=== PATIENT | male | born 1940 | race Caucasian/White ===

== ENCOUNTER 2021-02-04 14:36 | Outpatient (CLI) | payer MEDICARE ==
[2021-02-04 15:32] LABS: INR-International Normal Ratio 1.1; PTT 30.9 sec (22.0-33.0); Prothrombin Time 11.7 sec (9.5-12.1)
[2021-02-04 17:01] LABS: Anion Gap 17 mmol/L (10-20); BUN (Urea Nitrogen) 25 mg/dL (8.4-25.7); Calc. Creatinine Clearance 0 mL/min (70-130); Calcium 9.4 mg/dL (7.8-10.44); Carbon Dioxide 23 mmol/L (23-31); Chloride 102 mmol/L (98-107); Glucose 78 mg/dL (83-110); Potassium 4.9 mmol/L (3.5-5.1); Sodium 137 mmol/L (136-145)
[2021-02-05 01:27] LABS: SARS-CoV-2 PCR by NAA Not Detected (NotDetected)
== END 2021-02-04 14:37 | disposition home or self-care (01) ==
LOC: LABBT 14:36
PROVIDERS: ATTEND Internal Medicine Cardiovascular Disease
DX: Z01.818 Encounter for other preprocedural examination (principal); I48.91 Unspecified atrial fibrillation; Z20.822 Contact with and (suspected) exposure to COVID-19
CPT/HCPCS: 80048; 85610; 85730; 87635; U0003; U0005

== ENCOUNTER 2021-02-06 08:08 | Day surgery (SDC) | payer MEDICARE ==
[2021-02-05 13:08] VITALS: BMI 29.4
[2021-02-06] MEDS ORDERED: PROPOFOL 20 ML ONE (09:21)
[2021-02-06] MEDS ORDERED: PHENYLEPHRINE-NS 100 MCG/ML 10 ML SYRINGE ONE (09:21)
== END 2021-02-06 12:05 | disposition home or self-care (01) ==
LOC: CCL 08:08
PROVIDERS: ATTEND Internal Medicine Cardiovascular Disease
PROC: B24BZZ4 Ultrasonography of Heart with Aorta, Transesophageal (ICD-10-PCS; principal; 2021-02-06)
PROC: 5A2204Z Restoration of Cardiac Rhythm, Single (ICD-10-PCS; 2021-02-06)
DX: I48.0 Paroxysmal atrial fibrillation (principal); I25.5 Ischemic cardiomyopathy; I08.1 Rheumatic disorders of both mitral and tricuspid valves; I70.0 Atherosclerosis of aorta; E11.9 Type 2 diabetes mellitus without complications; I10 Essential (primary) hypertension; G47.33 Obstructive sleep apnea (adult) (pediatric); Z95.1 Presence of aortocoronary bypass graft; Z79.01 Long term (current) use of anticoagulants; Z79.4 Long term (current) use of insulin; Z79.899 Other long term (current) drug therapy; Z88.5 Allergy status to narcotic agent
CPT/HCPCS: 36416; 92960; 93005; 93010; 93312; J2704

== ENCOUNTER 2021-02-11 11:14 | Observation (INO) | payer MEDICARE ==
[2021-02-11 11:55] LABS: #Eosinphils 0.2 thou/uL (0.0-0.7); #Lymphocytes 1.4 thou/uL (1.20-3.40); #Monocytes 0.8 thou/uL (0.11-0.59); #Neutrophils 5.7 thou/uL (1.40-6.50); %Basophils 0.3 % (0.0-1.0); %Eosinophils 2.3 % (0.0-10.0); %Monocytes 9.4 % (0.0-10.0); Hemoglobin 11.2 g/dL (14.0-18.0); Mean Corpuscular HGB CONC 33.1 g/dL (32.0-36.0); Mean Corpuscular Hemoglobin 29.9 pg (27.0-31.0); Mean Corpuscular Volume 90.3 fL (78.0-98.0); Mean Platelet Volume 8.1 fL (7.4-10.4); Platelet Count 222 thou/uL (130-400); RBC Distribution Width 12.3 % (11.5-14.5); Red Blood Cell (RBC) Count 3.74 mill/uL (4.70-6.10); White Blood Cell (WBC) Count 8.1 thou/uL (4.8-10.8)
[2021-02-11 12:25] LABS: ALT (SGPT) 11 U/L (8-55); AST (SGOT) 9 U/L (5-34); Albumin 3.6 g/dL (3.4-4.8); Alkaline Phosphatase 88 U/L (40-110); Anion Gap 15 mmol/L (10-20); BUN (Urea Nitrogen) 28 mg/dL (8.4-25.7); Bilirubin, Total 0.4 mg/dL (0.2-1.2); Calc. Creatinine Clearance 0 mL/min (70-130); Calcium 9.5 mg/dL (7.8-10.44); Carbon Dioxide 21 mmol/L (23-31); Chloride 104 mmol/L (98-107); Globulin 3.1 g/dL (2.4-3.5); Glucose 193 mg/dL (83-110); Potassium 4.4 mmol/L (3.5-5.1); Protein, Total 6.7 g/dL (5.8-8.1); Sodium 136 mmol/L (136-145)
[2021-02-11] MEDS ORDERED: Furosemide 20 MG/2 ML VIAL SLOW IVP SCH (15:45)
[2021-02-11 17:00] LABS: Troponin I Less than 0.010 ng/mL (< 0.028)
[2021-02-11] MEDS ORDERED: Dextrose 50% Abboject 50 ML SYRINGE SLOW IVP PRN (17:09)
[2021-02-11] MEDS ORDERED: Acetaminophen 325 MG TAB PO PRN (17:09)
[2021-02-11] MEDS ORDERED: Dextrose 5% in Water 1,000 ML IV PRN (17:09)
[2021-02-11] MEDS ORDERED: Ondansetron ODT 4 MG TAB PO PRN (17:09)
[2021-02-11] MEDS ORDERED: HumaLOG 300 UNITS/3 ML VIAL SC PRN ×2 (17:09)
[2021-02-11 17:58] VITALS: BMI 31.4
[2021-02-11 19:54] LABS: Troponin I 0.011 ng/mL (< 0.028)
[2021-02-11] MEDS: Famotidine 20 MG TAB PO SCH (20:34)
[2021-02-11] MEDS: Amiodarone 200 MG TAB PO SCH (20:34)
[2021-02-11] MEDS: Sacubitril 49 MG/Valsartan 51 MG TABLET PO SCH (20:34)
[2021-02-11] MEDS: ALPRAZolam 0.25 MG TAB PO SCH (20:34)
[2021-02-11] MEDS ORDERED: Atorvastatin Calcium 40 MG TAB PO SCH (21:00)
[2021-02-11 21:11] LABS: SARS-CoV-2 PCR by NAA Not Detected (NotDetected)
[2021-02-12 05:26] LABS: Anion Gap 12 mmol/L (10-20); BUN (Urea Nitrogen) 21 mg/dL (8.4-25.7); Calc. Creatinine Clearance 84 mL/min (70-130); Calcium 9.5 mg/dL (7.8-10.44); Carbon Dioxide 26 mmol/L (23-31); Chloride 102 mmol/L (98-107); Glucose 190 mg/dL (83-110); Potassium 4.8 mmol/L (3.5-5.1); Sodium 135 mmol/L (136-145)
[2021-02-12] MEDS ORDERED: metFORMIN 500 MG TAB PO SCH (08:00)
[2021-02-12] MEDS ORDERED: Carvedilol 6.25 MG TAB PO SCH (08:00)
[2021-02-12] MEDS: Sacubitril 49 MG/Valsartan 51 MG TABLET PO SCH (08:23)
[2021-02-12] MEDS: Amiodarone 200 MG TAB PO SCH (08:24)
[2021-02-12] MEDS: Famotidine 20 MG TAB PO SCH (08:24)
[2021-02-12] MEDS: ALPRAZolam 0.25 MG TAB PO SCH (08:25)
[2021-02-12] MEDS ORDERED: Venlafaxine HCl 25 MG TAB PO SCH (09:00)
[2021-02-12] MEDS ORDERED: Non-Formulary Item 1 EACH (Carvedilol [Coreg] 12.5 MG Tab) PO SCH (09:00)
[2021-02-12] MEDS ORDERED: Atorvastatin Calcium 10 MG TAB PO SCH (09:00)
[2021-02-12] MEDS ORDERED: Non-Formulary Item 1 EACH (Metformin Hcl [Metformin Hcl] 1,000 MG Tablet) PO SCH (09:00)
[2021-02-12] MEDS ORDERED: Amiodarone 200 MG TAB PO SCH (09:00)
[2021-02-12] MEDS ORDERED: Apixaban 5 MG TAB PO SCH (09:00)
[2021-02-12] MEDS ORDERED: Ketorolac Tromethamine 30 MG/ML VIAL IVP SCH (09:15)
[2021-02-12] MEDS ORDERED: ALPRAZolam 0.25 MG TAB PO SCH ×2 (09:30→15:00)
[2021-02-12] MEDS ORDERED: Furosemide 20 MG TAB PO SCH (09:30)
[2021-02-12 12:14] VITALS: BP 99/57; TEMP 98
[2021-02-12] MEDS ORDERED: ALPRAZolam 0.5 MG TAB PO SCH (15:00)
[2021-02-12] MEDS ORDERED: Lantus 1000 UNITS/10 ML VIAL SC SCH (21:00)
[2021-02-12] MEDS ORDERED: Non-Formulary Item 1 EACH (Insulin Detemir 100 Units/Ml [Levemir] 100 UNITS/ML Vial) SQ SCH (21:00)
[2021-02-13] MEDS ORDERED: Furosemide 20 MG TAB PO SCH (09:00)
== END 2021-02-12 12:55 | disposition home or self-care (01) ==
LOC: ERS 11:14 → 2SW 15:00
PROVIDERS: ADMIT Student in an Organized Health Care Education/Training Program; ATTEND Student in an Organized Health Care Education/Training Program
DX: I11.0 Hypertensive heart disease with heart failure (principal); I50.9 Heart failure, unspecified; E78.5 Hyperlipidemia, unspecified; E11.9 Type 2 diabetes mellitus without complications; I48.91 Unspecified atrial fibrillation; I48.92 Unspecified atrial flutter; I25.10 Atherosclerotic heart disease of native coronary artery without angina pectoris; H40.9 Unspecified glaucoma; I44.0 Atrioventricular block, first degree; I45.4 Nonspecific intraventricular block; I08.1 Rheumatic disorders of both mitral and tricuspid valves; Z66 Do not resuscitate; Z79.01 Long term (current) use of anticoagulants; Z79.4 Long term (current) use of insulin; Z79.899 Other long term (current) drug therapy; Z88.5 Allergy status to narcotic agent; Z95.1 Presence of aortocoronary bypass graft; Z20.822 Contact with and (suspected) exposure to COVID-19
CPT/HCPCS: 71045; 71275; 80048; 80053; 82962 ×2; 83880; 84484 ×2; 85025; 93005; 93306; 94760; 99285; U0003; U0005; 36415; 36416; 87635; 96374; 96375; G0378; J1815; J1885; J1940

== ENCOUNTER 2021-04-10 11:19 | Outpatient (CLI) | payer MEDICARE ==
[2021-04-10 13:00] LABS: #Eosinphils 0.2 10x3/uL (0.0-0.5); #Monocytes 0.8 10x3/uL (0.0-1.1); #Neutrophils 3.7 10x3/uL (1.5-8.4); %Basophils 0.6 % (0.0-2.0); %Eosinophils 2.9 % (0.0-6.0); %Lymphocytes 24.1 % (18.0-47.0); %Monocytes 12.2 % (0.0-10.0); %Neutrophils 59.7 % (40.0-75.0); Hemoglobin 11.6 g/dL (13.5-17.5); Mean Corpuscular HGB CONC 31.4 g/dL (32.0-36.0); Mean Corpuscular Hemoglobin 28.7 pg (27.0-33.0); Mean Corpuscular Volume 91.3 fl (81.2-95.1); Mean Platelet Volume 10.7 fl (7.4-10.4); Platelet Count 144 10x3/uL (150-450); RBC Distribution Width 14.5 % (11.5-14.5); Red Blood Cell (RBC) Count 4.04 10x6/uL (4.32-5.72); White Blood Cell (WBC) Count 6.2 10x3/uL (3.5-10.5)
[2021-04-10 13:09] LABS: Bilirubin Neg (Negative); Blood, Urine Negative (Negative); Clarity Clear (Clear); Glucose, Urine (Dipstick) Normal (Negative); Ketone, Urine Negative (Negative); Leukocyte Negative (Negative); Nitrite Negative (Negative); Protein, Urine (Dipstick) 15 mg/dl (Neg-Trace); Specific Gravity, Urine 1.015 (1.002-1.036); Urobilinogen Normal mg/dL (Less than 2); pH, Urine 6.5 (5.0-9.0)
[2021-04-10 13:13] LABS: PTT 29.5 sec (22.0-33.0); Prothrombin Time 11.2 sec (9.5-12.1)
[2021-04-10 13:26] LABS: Creatinine, Urine 79.82 mg/dL (63-166); Microalbumin/Creat Ratio 75.2 mg/g (Less than 30)
[2021-04-10 13:37] LABS: ALT (SGPT) 38 U/L (8-55); AST (SGOT) 21 U/L (5-34); Albumin 3.7 g/dL (3.4-4.8); Alkaline Phosphatase 100 U/L (40-110); Anion Gap 13 mmol/L (10-20); BUN (Urea Nitrogen) 31 mg/dL (8.4-25.7); Bilirubin, Total 0.3 mg/dL (0.2-1.2); Calc. Creatinine Clearance 0 mL/min (70-130); Carbon Dioxide 27 mmol/L (23-31); Cardiac Risk 3.5 (Less than 4.5); Chloride 108 mmol/L (98-107); Cholesterol 130 mg/dl (< 200 Desired); Globulin 2.9 g/dL (2.4-3.5); Glucose 116 mg/dL (83-110); HDL Cholesterol 37 mg/dL (>60 Neg Risk); LDL Cholesterol, Calculated 81 mg/dL; Potassium 6.5 mmol/L (3.5-5.1); Protein, Total 6.6 g/dL (5.8-8.1); Sodium 141 mmol/L (136-145); Triglycerides 61 mg/dL (Less than 150)
[2021-04-10 16:34] LABS: Hemoglobin A1c 7.2 % (4.0-6.0)
== END 2021-04-10 11:20 | disposition home or self-care (01) ==
LOC: LABBT 11:19
PROVIDERS: ATTEND Internal Medicine Cardiovascular Disease
DX: Z01.812 Encounter for preprocedural laboratory examination (principal); I48.91 Unspecified atrial fibrillation; I44.7 Left bundle-branch block, unspecified
CPT/HCPCS: 80053; 80061; 81003; 82043; 83036; 84443; 85610; 85730

== ENCOUNTER 2021-04-15 08:41 | Day surgery (SDC) | payer MEDICARE ==
[2021-04-14 09:07] VITALS: BMI 31.3
[2021-04-15] MEDS ORDERED: Iopamidol 370 76% 50 ML VIAL FS ONE (09:03)
[2021-04-15] MEDS ORDERED: CEFAZOLIN 1 GM VIAL ONE ×2 (09:51→14:45)
[2021-04-15] MEDS ORDERED: Gentamicin 80 MG/2 ML VIAL ONE ×2 (09:51→14:45)
[2021-04-15] MEDS ORDERED: Heparin 10,000 UNITS/ 10 ML VIAL ONE (09:51)
[2021-04-15] MEDS ORDERED: Lidocaine 1% (PF) 30 ML VIAL ONE (09:51)
[2021-04-15] MEDS ORDERED: Famotidine/PF 20 mg/2ml Vial ONE (11:19)
[2021-04-15] MEDS ORDERED: Fentanyl 100 MCG/2 ML VIAL ONE ×2 (11:19→16:18)
[2021-04-15] MEDS ORDERED: Midazolam HCl 2 mg/2 ml Vial ONE (11:19)
[2021-04-15] MEDS ORDERED: PHENYLEPHRINE-NS 100 MCG/ML 10 ML SYRINGE ONE (11:56)
[2021-04-15] MEDS ORDERED: PROPOFOL 200 MG/20 ML VIAL ONE (11:56)
[2021-04-15] MEDS ORDERED: Metoclopramide HCl 10 MG/2 ML VIAL ONE (11:56)
[2021-04-15] MEDS ORDERED: Ondansetron PF 4 MG/2 ML Vial ONE (11:56)
[2021-04-15] MEDS ORDERED: Lidocaine 1% PF 5 ML VIAL ONE (11:56)
[2021-04-15] MEDS ORDERED: Propofol 1,000 MG/100 ML VIAL IV ONE (11:59)
[2021-04-15] MEDS ORDERED: DOPamine 400 MG/D5W 250 ML 250 ML ONE (14:27)
[2021-04-15] MEDS ORDERED: HYDROcodone/Acetaminophen 5/325 mg Tablet ONE (18:01)
== END 2021-04-15 20:25 | disposition home or self-care (01) ==
LOC: CCL 08:41
PROVIDERS: ATTEND Internal Medicine Cardiovascular Disease
PROC: 0JH606Z Insertion of Pacemaker, Dual Chamber into Chest Subcutaneous Tissue and Fascia, Open Approach (ICD-10-PCS; principal; 2021-04-15)
PROC: 02HL3JZ Insertion of Pacemaker Lead into Left Ventricle, Percutaneous Approach (ICD-10-PCS; 2021-04-15)
PROC: 02H63JZ Insertion of Pacemaker Lead into Right Atrium, Percutaneous Approach (ICD-10-PCS; 2021-04-15)
PROC: 02HK3JZ Insertion of Pacemaker Lead into Right Ventricle, Percutaneous Approach (ICD-10-PCS; 2021-04-15)
PROC: 02583ZZ Destruction of Conduction Mechanism, Percutaneous Approach (ICD-10-PCS; 2021-04-15)
PROC: 02K83ZZ Map Conduction Mechanism, Percutaneous Approach (ICD-10-PCS; 2021-04-15)
DX: I49.5 Sick sinus syndrome (principal); R00.1 Bradycardia, unspecified; I48.11 Longstanding persistent atrial fibrillation; J44.9 Chronic obstructive pulmonary disease, unspecified; I50.42 Chronic combined systolic (congestive) and diastolic (congestive) heart failure; I27.20 Pulmonary hypertension, unspecified; I25.5 Ischemic cardiomyopathy; I44.7 Left bundle-branch block, unspecified; I44.2 Atrioventricular block, complete; I25.10 Atherosclerotic heart disease of native coronary artery without angina pectoris; E78.00 Pure hypercholesterolemia, unspecified; E11.69 Type 2 diabetes mellitus with other specified complication; H54.3 Unqualified visual loss, both eyes; G47.30 Sleep apnea, unspecified; Z79.01 Long term (current) use of anticoagulants; Z79.4 Long term (current) use of insulin; Z79.899 Other long term (current) drug therapy; Z88.5 Allergy status to narcotic agent; Z95.1 Presence of aortocoronary bypass graft
CPT/HCPCS: 33208; 33225; 71045; 76942; 93005; 93613; 93623; 93650; C1732; C1769; J0690; J1265; J1580; J1644; J2001; J2250; J2405; J2704; J2765; J3010; Q9967; S0028

== ENCOUNTER 2023-01-21 05:54 | Day surgery (SDC) | payer MEDICARE ==
[2023-01-18 13:34] VITALS: BMI 30.6
[2023-01-21] MEDS ORDERED: Lidocaine 1% MPF 2 ML VIAL ONE (06:31)
[2023-01-21] MEDS ORDERED: Dextrose 50% Abboject 50 ML SYRINGE ONE (07:18)
[2023-01-21] MEDS ORDERED: Ondansetron PF 4 MG/2 ML Vial ONE (08:11)
[2023-01-21] MEDS ORDERED: fentaNYL 50 mcg/mL 1 mL Vial ONE ×2 (08:11)
== END 2023-01-21 10:47 | disposition home or self-care (01) ==
LOC: SDC 05:54
PROVIDERS: ATTEND Internal Medicine
PROC: 0DB98ZX Excision of Duodenum, Via Natural or Artificial Opening Endoscopic, Diagnostic (ICD-10-PCS; principal; 2023-01-21)
PROC: 0DB78ZX Excision of Stomach, Pylorus, Via Natural or Artificial Opening Endoscopic, Diagnostic (ICD-10-PCS; 2023-01-21)
PROC: 0DB58ZX Excision of Esophagus, Via Natural or Artificial Opening Endoscopic, Diagnostic (ICD-10-PCS; 2023-01-21)
PROC: 0DBG8ZX Excision of Left Large Intestine, Via Natural or Artificial Opening Endoscopic, Diagnostic (ICD-10-PCS; 2023-01-21)
PROC: 0DBF8ZX Excision of Right Large Intestine, Via Natural or Artificial Opening Endoscopic, Diagnostic (ICD-10-PCS; 2023-01-21)
PROC: 0DBK8ZX Excision of Ascending Colon, Via Natural or Artificial Opening Endoscopic, Diagnostic (ICD-10-PCS; 2023-01-21)
PROC: 0DBN8ZX Excision of Sigmoid Colon, Via Natural or Artificial Opening Endoscopic, Diagnostic (ICD-10-PCS; 2023-01-21)
PROC: 0DBM8ZX Excision of Descending Colon, Via Natural or Artificial Opening Endoscopic, Diagnostic (ICD-10-PCS; 2023-01-21)
DX: D12.0 Benign neoplasm of cecum (principal); D12.2 Benign neoplasm of ascending colon; D12.4 Benign neoplasm of descending colon; D12.5 Benign neoplasm of sigmoid colon; K63.5 Polyp of colon; K21.00 Gastro-esophageal reflux disease with esophagitis, without bleeding; K52.9 Noninfective gastroenteritis and colitis, unspecified; K29.70 Gastritis, unspecified, without bleeding; K44.9 Diaphragmatic hernia without obstruction or gangrene; K64.8 Other hemorrhoids; I25.10 Atherosclerotic heart disease of native coronary artery without angina pectoris; E11.9 Type 2 diabetes mellitus without complications; E78.5 Hyperlipidemia, unspecified; I10 Essential (primary) hypertension; E07.9 Disorder of thyroid, unspecified; Z79.01 Long term (current) use of anticoagulants; Z79.4 Long term (current) use of insulin; Z79.84 Long term (current) use of oral hypoglycemic drugs; Z79.890 Hormone replacement therapy; Z79.899 Other long term (current) drug therapy; Z88.5 Allergy status to narcotic agent; Z95.0 Presence of cardiac pacemaker; Z95.1 Presence of aortocoronary bypass graft
CPT/HCPCS: 43239; 45380; 45385; 82962; J3010; 36416; 88305; J2405; J7999

== ENCOUNTER 2023-09-29 17:45 | Inpatient (IN) | payer MEDICARE ==
[2023-09-29] MEDS ORDERED: Aspirin Chewable 81 MG TAB ONE (18:12)
[2023-09-29] MEDS ORDERED: hydrALAZINE 20 MG/ML VIAL SLOW IVP PRN (19:45)
[2023-09-29] MEDS ORDERED: HumaLOG 300 UNITS/3 ML VIAL SC PRN ×2 (20:41)
[2023-09-29] MEDS ORDERED: Dextrose 5% in Water 1,000 ML IV PRN (20:41)
[2023-09-29] MEDS ORDERED: Dextrose 50% Abboject 50 ML SYRINGE SLOW IVP PRN (20:41)
[2023-09-29] MEDS ORDERED: Glucagon 1 MG/ML KIT IM PRN (20:41)
[2023-09-29 21:31] LABS: Bacteria/HPF None Seen HPF (None Seen); Bilirubin Negative (Negative); Blood, Urine 3+ (Negative); CAUTI Indications for Culture Acute Hematuria; Clarity Clear (Clear); Glucose, Urine (Dipstick) Normal (Negative); Ketone, Urine Negative (Negative); Leukocyte Negative Leu/uL (Negative); Nitrite Negative (Negative); Protein, Urine (Dipstick) 10 mg/dL (Neg-Trace); RBC/HPF Greater than 50 HPF (0-3); Specific Gravity, Urine 1.034 (1.002-1.036); Squamous Epithelial 0-3 HPF (0-3); Urobilinogen Normal mg/dL (Less than 2); WBC/HPF 0-3 HPF (0-3); pH, Urine 5.5 (5.0-9.0)
[2023-09-29 21:32] LABS: Urine Culture Reflex No No
[2023-09-29 22:34] VITALS: BMI 29.7
[2023-09-29] MEDS: Acetaminophen 325 MG TAB PO PRN (23:20)
[2023-09-30] LABS: Bacteria/HPF None Seen HPF (None Seen); Bilirubin Negative (Negative); Blood, Urine 3+ (Negative); CAUTI Indications for Culture Acute Hematuria; Clarity Clear (Clear); Glucose, Urine (Dipstick) Normal (Negative); Ketone, Urine Negative (Negative); Leukocyte Negative Leu/uL (Negative); Nitrite Negative (Negative); Protein, Urine (Dipstick) Negative (Neg-Trace); RBC/HPF Greater than 50 HPF (0-3); Squamous Epithelial None Seen HPF (0-3); Urobilinogen Normal mg/dL (Less than 2); pH, Urine 5.5 (5.0-9.0)
[2023-09-30 00:02] LABS: Urine Culture Reflex Yes Yes
[2023-09-30 04:06] LABS: #Eosinphils 0.3 thou/uL (0.0-0.7); #Monocytes 0.8 thou/uL (0.11-0.59); #Neutrophils 3.6 thou/uL (1.40-6.50); %Basophils 0.6 % (0.0-1.0); %Eosinophils 4.3 % (0.0-10.0); %Lymphocytes 27.5 % (21.0-51.0); %Monocytes 11.6 % (0.0-10.0); %Neutrophils 55.4 % (42.0-75.0); Hematocrit 33.5 % (42.0-52.0); Hemoglobin 10.9 g/dL (14.0-18.0); Mean Corpuscular HGB CONC 32.5 g/dL (32.0-36.0); Mean Corpuscular Hemoglobin 29.2 pg (27.0-31.0); Mean Corpuscular Volume 89.8 fl (78.0-98.0); Mean Platelet Volume 10.3 fL (7.4-10.4); Platelet Count 188 10x3/uL (130-400); RBC Distribution Width 13.6 % (11.5-14.5); Red Blood Cell (RBC) Count 3.73 mill/uL (4.70-6.10); White Blood Cell (WBC) Count 6.5 10x3/uL (4.8-10.8)
[2023-09-30 04:35] LABS: Anion Gap 11 mmol/L (10-20); BUN (Urea Nitrogen) 18 mg/dL (8.4-25.7); Calc. Creatinine Clearance 79 mL/min (70-130); Calcium 8.9 mg/dL (7.8-10.44); Carbon Dioxide 25 mmol/L (23-31); Cardiac Risk 3.9 (Less than 4.5); Chloride 106 mmol/L (98-107); Cholesterol 120 mg/dl (< 200 Desired); Estimated GFR 76; Glucose 129 mg/dL (83-110); HDL Cholesterol 31 mg/dL (>60 Neg Risk); LDL Cholesterol, Calculated 70 mg/dL; Potassium 3.7 mmol/L (3.5-5.1); Sodium 138 mmol/L (136-145); Triglycerides 95 mg/dL (Less than 150)
[2023-09-30] MEDS: Levothyroxine Sodium 25 MCG TAB PO SCH (05:53)
[2023-09-30 06:35] LABS: #Basophils 0.1 thou/uL (0.0-0.2); #Eosinphils 0.3 thou/uL (0.0-0.7); #Monocytes 0.6 thou/uL (0.11-0.59); #Neutrophils 3.6 thou/uL (1.40-6.50); %Eosinophils 4.1 % (0.0-10.0); %Lymphocytes 26.6 % (21.0-51.0); %Monocytes 10.1 % (0.0-10.0); %Neutrophils 57.6 % (42.0-75.0); Hematocrit 36.3 % (42.0-52.0); Hemoglobin 11.9 g/dL (14.0-18.0); Mean Corpuscular HGB CONC 32.8 g/dL (32.0-36.0); Mean Corpuscular Hemoglobin 29.5 pg (27.0-31.0); Mean Corpuscular Volume 89.9 fl (78.0-98.0); Mean Platelet Volume 10.2 fL (7.4-10.4); Platelet Count 205 10x3/uL (130-400); RBC Distribution Width 13.6 % (11.5-14.5); Red Blood Cell (RBC) Count 4.04 mill/uL (4.70-6.10); White Blood Cell (WBC) Count 6.3 10x3/uL (4.8-10.8)
[2023-09-30 07:13] LABS: ALT (SGPT) 15 U/L (8-55); AST (SGOT) 14 U/L (5-34); Albumin 3.5 g/dL (3.4-4.8); Alkaline Phosphatase 88 U/L (40-110); Anion Gap 12 mmol/L (10-20); BUN (Urea Nitrogen) 17 mg/dL (8.4-25.7); Bilirubin, Total 0.4 mg/dL (0.2-1.2); Calc. Creatinine Clearance 84 mL/min (70-130); Calcium 8.7 mg/dL (7.8-10.44); Carbon Dioxide 25 mmol/L (23-31); Chloride 107 mmol/L (98-107); Estimated GFR 80; Globulin 3.1 g/dL (2.4-3.5); Glucose 115 mg/dL (83-110); Potassium 3.8 mmol/L (3.5-5.1); Protein, Total 6.6 g/dL (5.8-8.1); Sodium 140 mmol/L (136-145)
[2023-09-30] MEDS ORDERED: Lorazepam 0.5 MG TAB PO PRN (08:13)
[2023-09-30] MEDS ORDERED: Apixaban 5 MG TAB PO SCH ×2 (09:00→14:02)
[2023-09-30] MEDS: metFORMIN 500 MG TAB PO SCH ×2 (09:28→18:11)
[2023-09-30] MEDS: Dorzolamide HCl 2% Ophth Soln 10 ml Bottle EA EYE SCH ×2 (09:28→20:52)
[2023-09-30] MEDS: Insulin Glargine 30 UNITS/0.3 ML VIAL SC SCH (09:28)
[2023-09-30] MEDS: Aspirin 81 mg Enteric Coated Tablet PO SCH (09:29)
[2023-09-30] MEDS: Sertraline 100 MG TAB PO SCH (09:29)
[2023-09-30] MEDS ORDERED: Atorvastatin Calcium 40 MG TAB PO SCH (14:00)
[2023-09-30] MEDS: Apixaban 5 MG TAB PO SCH (20:52)
[2023-09-30] MEDS ORDERED: Atorvastatin Calcium 10 MG TAB PO SCH (21:00)
[2023-10-01] MEDS: Levothyroxine Sodium 25 MCG TAB PO SCH (05:54)
[2023-10-01 06:36] LABS: #Basophils 0.1 thou/uL (0.0-0.2); #Eosinphils 0.2 thou/uL (0.0-0.7); #Monocytes 0.7 thou/uL (0.11-0.59); #Neutrophils 4.6 thou/uL (1.40-6.50); %Basophils 0.7 % (0.0-1.0); %Eosinophils 3.1 % (0.0-10.0); %Lymphocytes 24.1 % (21.0-51.0); %Monocytes 9.7 % (0.0-10.0); %Neutrophils 62.1 % (42.0-75.0); Hematocrit 37.3 % (42.0-52.0); Hemoglobin 12.2 g/dL (14.0-18.0); Mean Corpuscular HGB CONC 32.7 g/dL (32.0-36.0); Mean Corpuscular Hemoglobin 29.3 pg (27.0-31.0); Mean Corpuscular Volume 89.7 fl (78.0-98.0); Mean Platelet Volume 10.2 fL (7.4-10.4); Platelet Count 165 10x3/uL (130-400); RBC Distribution Width 13.5 % (11.5-14.5); Red Blood Cell (RBC) Count 4.16 mill/uL (4.70-6.10); White Blood Cell (WBC) Count 7.4 10x3/uL (4.8-10.8)
[2023-10-01 07:05] LABS: ALT (SGPT) 14 U/L (8-55); AST (SGOT) 13 U/L (5-34); Albumin 3.4 g/dL (3.4-4.8); Alkaline Phosphatase 83 U/L (40-110); Anion Gap 13 mmol/L (10-20); BUN (Urea Nitrogen) 17 mg/dL (8.4-25.7); Bilirubin, Total 0.4 mg/dL (0.2-1.2); Calc. Creatinine Clearance 91 mL/min (70-130); Calcium 8.7 mg/dL (7.8-10.44); Carbon Dioxide 23 mmol/L (23-31); Chloride 105 mmol/L (98-107); Estimated GFR 87; Glucose 120 mg/dL (83-110); Protein, Total 6.4 g/dL (5.8-8.1); Sodium 137 mmol/L (136-145)
[2023-10-01] MEDS: Acetaminophen 325 MG TAB PO PRN (08:04)
[2023-10-01] MEDS: Insulin Glargine 30 UNITS/0.3 ML VIAL SC SCH (08:06)
[2023-10-01] MEDS: Dorzolamide HCl 2% Ophth Soln 10 ml Bottle EA EYE SCH ×2 (08:06→20:02)
[2023-10-01] MEDS: Aspirin 81 mg Enteric Coated Tablet PO SCH (08:07)
[2023-10-01] MEDS: metFORMIN 500 MG TAB PO SCH ×2 (08:07→16:47)
[2023-10-01] MEDS: Apixaban 5 MG TAB PO SCH ×2 (08:07→20:02)
[2023-10-01] MEDS: Sertraline 100 MG TAB PO SCH (08:08)
[2023-10-01] MEDS ORDERED: Carvedilol 6.25 MG TAB PO SCH (09:00)
[2023-10-01] MEDS ORDERED: Isosorbide Mononitrate 30 MG ER.TAB PO SCH (09:00)
[2023-10-01] MEDS: Lactated Ringer's 1,000 ML IV SCH ×2 (16:42→23:56)
[2023-10-01] MEDS ORDERED: Atorvastatin Calcium 40 MG TAB PO SCH (21:00)
[2023-10-02] MEDS: Levothyroxine Sodium 25 MCG TAB PO SCH (05:50)
[2023-10-02 06:38] LABS: #Eosinphils 0.2 thou/uL (0.0-0.7); #Monocytes 0.7 thou/uL (0.11-0.59); #Neutrophils 4.3 thou/uL (1.40-6.50); %Basophils 0.4 % (0.0-1.0); %Eosinophils 3.4 % (0.0-10.0); %Neutrophils 61.5 % (42.0-75.0); Hematocrit 35.5 % (42.0-52.0); Hemoglobin 11.6 g/dL (14.0-18.0); Mean Corpuscular HGB CONC 32.7 g/dL (32.0-36.0); Mean Corpuscular Hemoglobin 29.7 pg (27.0-31.0); Mean Corpuscular Volume 90.8 fl (78.0-98.0); Mean Platelet Volume 9.4 fL (7.4-10.4); Platelet Count 209 10x3/uL (130-400); RBC Distribution Width 13.6 % (11.5-14.5); Red Blood Cell (RBC) Count 3.91 mill/uL (4.70-6.10)
[2023-10-02 07:04] LABS: ALT (SGPT) 13 U/L (8-55); AST (SGOT) 12 U/L (5-34); Albumin 3.4 g/dL (3.4-4.8); Alkaline Phosphatase 84 U/L (40-110); Anion Gap 12 mmol/L (10-20); BUN (Urea Nitrogen) 23 mg/dL (8.4-25.7); Bilirubin, Total 0.5 mg/dL (0.2-1.2); Calc. Creatinine Clearance 81 mL/min (70-130); Calcium 8.8 mg/dL (7.8-10.44); Carbon Dioxide 24 mmol/L (23-31); Chloride 106 mmol/L (98-107); Estimated GFR 77; Globulin 3.1 g/dL (2.4-3.5); Glucose 123 mg/dL (83-110); Protein, Total 6.5 g/dL (5.8-8.1); Sodium 138 mmol/L (136-145)
[2023-10-02] MEDS: metFORMIN 500 MG TAB PO SCH (09:06)
[2023-10-02] MEDS: Insulin Glargine 30 UNITS/0.3 ML VIAL SC SCH (09:06)
[2023-10-02] MEDS: Apixaban 5 MG TAB PO SCH (09:07)
[2023-10-02] MEDS: Aspirin 81 mg Enteric Coated Tablet PO SCH (09:07)
[2023-10-02] MEDS: Sertraline 100 MG TAB PO SCH (09:07)
[2023-10-02] MEDS: Dorzolamide HCl 2% Ophth Soln 10 ml Bottle EA EYE SCH (09:07)
[2023-10-02 16:10] VITALS: BP 128/70
[2023-10-02 16:27] VITALS: TEMP 98.2
[2023-10-03] MEDS ORDERED: FLU VACC QS2023(65UP)/MF59C/PF 60 MCG/0.5 ML SYRINGE IM ONE (09:00)
== END 2023-10-02 18:19 | disposition home or self-care (01) | DRG 66 ==
LOC: ERS 17:45 → 2SE 18:37
PROVIDERS: ADMIT Family Medicine; ATTEND Family Medicine
DX: I63.231 Cerebral infarction due to unspecified occlusion or stenosis of right carotid arteries (principal); I25.10 Atherosclerotic heart disease of native coronary artery without angina pectoris; R47.01 Aphasia; I48.91 Unspecified atrial fibrillation; E78.5 Hyperlipidemia, unspecified; I10 Essential (primary) hypertension; E11.9 Type 2 diabetes mellitus without complications; R31.9 Hematuria, unspecified; R53.1 Weakness; R47.1 Dysarthria and anarthria; K21.9 Gastro-esophageal reflux disease without esophagitis; H54.61 Unqualified visual loss, right eye, normal vision left eye; Z98.890 Other specified postprocedural states; Z95.0 Presence of cardiac pacemaker; Z88.6 Allergy status to analgesic agent; Z95.1 Presence of aortocoronary bypass graft; Z79.84 Long term (current) use of oral hypoglycemic drugs; Z79.4 Long term (current) use of insulin; Z79.890 Hormone replacement therapy; Z79.899 Other long term (current) drug therapy
CPT/HCPCS: 36415; 36416; 70551; 80048; 80053; 80061; 81001; 82607; 83036; 84443; 85025; 87086; 93306; 99285; J1815; J7120

== ENCOUNTER 2023-11-07 06:14 | Inpatient (IN) | payer MEDICARE ==
[2023-11-07] MEDS ORDERED: EPINEPHrine 1 MG/ML VIAL ONE (06:41)
[2023-11-07] MEDS ORDERED: Bupivacaine PF 0.5% 30 ML VIAL ONE (06:41)
[2023-11-07] MEDS ORDERED: Heparin 5,000 UNITS/ML VIAL ONE (06:41)
[2023-11-07] MEDS ORDERED: Lidocaine 1% MPF 2 ML VIAL ONE (06:52)
[2023-11-07 07:03] LABS: Hematocrit 33.1 % (42.0-52.0); Hemoglobin 10.6 g/dL (14.0-18.0); Mean Corpuscular Hemoglobin 29.1 pg (27.0-31.0); Mean Corpuscular Volume 90.9 fl (78.0-98.0); Mean Platelet Volume 10.6 fL (7.4-10.4); Platelet Count 177 10x3/uL (130-400); Red Blood Cell (RBC) Count 3.64 mill/uL (4.70-6.10); White Blood Cell (WBC) Count 6.4 10x3/uL (4.8-10.8)
[2023-11-07] MEDS ORDERED: Sodium Chloride 0.9% 100 ML ONE (07:20)
[2023-11-07] MEDS ORDERED: CEFAZOLIN 2 GM VIAL ONE (07:20)
[2023-11-07] MEDS ORDERED: fentaNYL 50 mcg/mL 1 mL Vial ONE (07:25)
[2023-11-07 07:26] LABS: Anion Gap 11 mmol/L (10-20); BUN (Urea Nitrogen) 25 mg/dL (8.4-25.7); Calc. Creatinine Clearance 68 mL/min (70-130); Calcium 8.8 mg/dL (7.8-10.44); Carbon Dioxide 23 mmol/L (23-31); Chloride 111 mmol/L (98-107); Estimated GFR 59; Glucose 148 mg/dL (83-110); Potassium 4.4 mmol/L (3.5-5.1); Sodium 141 mmol/L (136-145)
[2023-11-07] MEDS ORDERED: fentaNYL PF 100 MCG/2 ML SYRINGE ONE (07:26)
[2023-11-07] MEDS ORDERED: PROPOFOL 20 ML ONE ×2 (07:29→09:05)
[2023-11-07] MEDS ORDERED: Dexamethasone 20 MG/5 ML VIAL ONE (08:07)
[2023-11-07] MEDS ORDERED: Glycopyrrolate 0.2 MG/ML 5 ML SYRINGE ONE (08:07)
[2023-11-07] MEDS ORDERED: NEOSTIGMINE 3 MG/3 ML SYR 3 MG/3 ML SYRINGE ONE (08:07)
[2023-11-07] MEDS ORDERED: Dexmedetomidine 200 MCG/2 ML VIAL ONE (08:43)
[2023-11-07] MEDS ORDERED: Heparin 10,000 UNITS/ 10 ML VIAL ONE (08:43)
[2023-11-07] MEDS ORDERED: PHENYLEPHRINE-NS 100 MCG/ML 10 ML SYRINGE ONE (08:43)
[2023-11-07] MEDS ORDERED: Rocuronium Bromide 10 MG/ML (10ML VIAL) ONE (08:43)
[2023-11-07] MEDS ORDERED: Protamine Sulfate 50 MG/5 ML VIAL ONE (08:43)
[2023-11-07] MEDS ORDERED: Lidocaine 1% PF 5 ML VIAL ONE (08:43)
[2023-11-07] MEDS ORDERED: Ondansetron PF 4 MG/2 ML Vial ONE (08:43)
[2023-11-07] MEDS ORDERED: Insulin Regular 300 UNITS/3 ML VIAL SC PRN (09:53)
[2023-11-07] MEDS ORDERED: Ipratropium/Albuterol 3 ML NEB NEB PRN (09:53)
[2023-11-07] MEDS ORDERED: Nitroglycerin 50 MG/250 ML BOT 250 ML IVPB PRN (09:53)
[2023-11-07] MEDS ORDERED: Phenylephrine 40 MG in Sodium Chloride 0.9% 250 ML 250 ML IVPB PRN (09:53)
[2023-11-07] MEDS ORDERED: Ondansetron PF 4 MG/2 ML Vial IVP PRN (09:53)
[2023-11-07] MEDS ORDERED: traMADol HCl 50 MG TAB PO PRN (09:53)
[2023-11-07] MEDS ORDERED: Sertraline 100 MG TAB PO SCH (10:15)
[2023-11-07] MEDS ORDERED: Aspirin 81 mg Enteric Coated Tablet PO SCH (10:15)
[2023-11-07] MEDS: fentaNYL 50 mcg/mL 1 mL Vial SLOW IVP PRN ×3 (10:27→23:32)
[2023-11-07] MEDS: Sodium Chloride 0.9% 1,000 ML IV SCH ×2 (10:47→21:46)
[2023-11-07] MEDS ORDERED: Dextrose 5% in Water 1,000 ML IV PRN (11:00)
[2023-11-07] MEDS ORDERED: Dextrose 50% Abboject 50 ML SYRINGE IVP PRN (11:00)
[2023-11-07] MEDS ORDERED: Glucagon 1 MG/ML KIT IM PRN (11:00)
[2023-11-07 11:01] VITALS: BMI 30.3
[2023-11-07] MEDS: Ipratropium/Albuterol 3 ML NEB NEB SCH ×3 (12:44→23:04)
[2023-11-07] MEDS: Acetaminophen 325 MG TAB PO PRN (16:00)
[2023-11-07] MEDS: CEFAZOLIN 2 GM in Sodium Chloride 0.9% 100 ML IVPB SCH (16:00)
[2023-11-07] MEDS ORDERED: Atorvastatin Calcium 40 MG TAB PO SCH (21:00)
[2023-11-07] MEDS ORDERED: Insulin Glargine 30 UNITS/0.3 ML VIAL SC SCH (21:00)
[2023-11-07] MEDS: traMADol HCl 50 MG TAB PO PRN (21:47)
[2023-11-07] MEDS: Brimonidine Tartrate 0.2% Ophth Soln 5 ml Bottle R EYE SCH (22:30)
[2023-11-07] MEDS: Dorzolamide HCl 2% Ophth (10 mL) Bottle R EYE SCH (23:35)
[2023-11-08] MEDS: CEFAZOLIN 2 GM in Sodium Chloride 0.9% 100 ML IVPB SCH ×2 (00:14→08:00)
[2023-11-08] MEDS: hydrALAZINE 20 MG/ML VIAL SLOW IVP PRN ×2 (00:17→06:03)
[2023-11-08] MEDS: fentaNYL 50 mcg/mL 1 mL Vial SLOW IVP PRN ×2 (04:40→08:13)
[2023-11-08] MEDS: Sodium Chloride 0.9% 1,000 ML IV SCH (05:28)
[2023-11-08] MEDS ORDERED: Levothyroxine Sodium 25 MCG TAB PO SCH (06:00)
[2023-11-08] MEDS: traMADol HCl 50 MG TAB PO PRN (06:03)
[2023-11-08 06:04] VITALS: BP 151/79
[2023-11-08] MEDS ORDERED: Tamsulosin HCl 0.4 MG CAP PO SCH (07:00)
[2023-11-08] MEDS: Ipratropium/Albuterol 3 ML NEB NEB SCH ×2 (07:11→12:12)
[2023-11-08] MEDS: Acetaminophen 325 MG TAB PO PRN (07:19)
[2023-11-08] MEDS ORDERED: metFORMIN 500 MG TAB PO SCH (08:00)
[2023-11-08] MEDS: Brimonidine Tartrate 0.2% Ophth Soln 5 ml Bottle R EYE SCH (08:01)
[2023-11-08] MEDS: Dorzolamide HCl 2% Ophth (10 mL) Bottle R EYE SCH (08:01)
[2023-11-08] MEDS ORDERED: Sertraline 100 MG TAB PO SCH (09:00)
[2023-11-08] MEDS ORDERED: Aspirin 81 mg Enteric Coated Tablet PO SCH (09:00)
[2023-11-08] MEDS ORDERED: Dextrose 50% Abboject 50 ML SYRINGE SLOW IVP PRN (11:00)
[2023-11-08] MEDS ORDERED: Dextrose 5% in Water 1,000 ML IV PRN (11:00)
[2023-11-08] MEDS ORDERED: Glucagon 1 MG/ML KIT SC PRN (11:00)
[2023-11-08 13:06] VITALS: TEMP 98.3
[2023-11-09] MEDS ORDERED: Tamsulosin HCl 0.4 MG CAP PO SCH (09:00)
== END 2023-11-08 13:00 | disposition home or self-care (01) | DRG 39 ==
LOC: SURG A 06:14 → EDSTATUS 09:24 → CCU 09:59
PROVIDERS: ADMIT Thoracic Surgery (Cardiothoracic Vascular Surgery); ATTEND Thoracic Surgery (Cardiothoracic Vascular Surgery)
PROC: 03CJ0ZZ Extirpation of Matter from Left Common Carotid Artery, Open Approach (ICD-10-PCS; principal; 2023-11-07)
PROC: 03CN0ZZ Extirpation of Matter from Left External Carotid Artery, Open Approach (ICD-10-PCS; 2023-11-07)
PROC: 3E033XZ Introduction of Vasopressor into Peripheral Vein, Percutaneous Approach (ICD-10-PCS; 2023-11-07)
DX: I65.23 Occlusion and stenosis of bilateral carotid arteries (principal); Z88.5 Allergy status to narcotic agent; Z79.899 Other long term (current) drug therapy
CPT/HCPCS: 36416; 80048; 85027; 93005; 93010; 94640; J0171; J0360; J0665; J1100; J1642; J1644; J1815; J2405; J2704; J2720; J3010; J3490; J7050; J7620

== ENCOUNTER 2023-12-05 05:59 | Inpatient (IN) | payer MEDICARE ==
[2023-12-05] MEDS ORDERED: CEFAZOLIN 2 GM VIAL ONE (06:18)
[2023-12-05] MEDS ORDERED: Sodium Chloride 0.9% 100 ML ONE (06:18)
[2023-12-05 06:44] LABS: #Basophils 0.1 thou/uL (0.0-0.2); #Eosinphils 0.4 thou/uL (0.0-0.7); #Monocytes 0.8 thou/uL (0.11-0.59); #Neutrophils 5.5 thou/uL (1.40-6.50); %Basophils 0.8 % (0.0-1.0); %Eosinophils 5.1 % (0.0-10.0); %Lymphocytes 18.1 % (21.0-51.0); %Monocytes 9.6 % (0.0-10.0); Hematocrit 34.9 % (42.0-52.0); Mean Corpuscular HGB CONC 31.5 g/dL (32.0-36.0); Mean Corpuscular Hemoglobin 28.2 pg (27.0-31.0); Mean Corpuscular Volume 89.5 fl (78.0-98.0); Mean Platelet Volume 10.8 fL (7.4-10.4); Platelet Count 170 10x3/uL (130-400); RBC Distribution Width 14.7 % (11.5-14.5); White Blood Cell (WBC) Count 8.3 10x3/uL (4.8-10.8)
[2023-12-05] MEDS ORDERED: Heparin 5,000 UNITS/ML VIAL ONE (06:44)
[2023-12-05] MEDS ORDERED: Bupivacaine PF 0.5% 30 ML VIAL ONE (06:45)
[2023-12-05] MEDS ORDERED: EPINEPHrine 1 MG/ML VIAL ONE (06:45)
[2023-12-05] MEDS ORDERED: Protamine Sulfate 50 MG/5 ML VIAL ONE (06:45)
[2023-12-05] MEDS ORDERED: Rocuronium Bromide 10 MG/ML (10ML VIAL) ONE (06:53)
[2023-12-05] MEDS ORDERED: fentaNYL PF 100 MCG/2 ML SYRINGE ONE (06:53)
[2023-12-05] MEDS ORDERED: PROPOFOL 20 ML ONE (06:53)
[2023-12-05] MEDS ORDERED: Lidocaine 2% PF 5 ML VIAL ONE (06:53)
[2023-12-05] MEDS ORDERED: PHENYLEPHRINE-NS 100 MCG/ML 10 ML SYRINGE ONE ×2 (06:53→06:58)
[2023-12-05] MEDS ORDERED: Heparin 10,000 UNITS/ 10 ML VIAL ONE (06:58)
[2023-12-05] MEDS ORDERED: Glycopyrrolate 0.2 MG/ML 5 ML SYRINGE ONE (06:58)
[2023-12-05] MEDS ORDERED: Lidocaine 1% PF 5 ML VIAL ONE (06:58)
[2023-12-05] MEDS ORDERED: NEOSTIGMINE 3 MG/3 ML SYR 3 MG/3 ML SYRINGE ONE (06:58)
[2023-12-05] MEDS ORDERED: Midazolam HCl 2 mg/2 ml Vial ONE (07:02)
[2023-12-05 07:07] LABS: Anion Gap 16 mmol/L (10-20); BUN (Urea Nitrogen) 29 mg/dL (8.4-25.7); Calc. Creatinine Clearance 55 mL/min (70-130); Carbon Dioxide 21 mmol/L (23-31); Chloride 106 mmol/L (98-107); Estimated GFR 45; Glucose 133 mg/dL (83-110); Potassium 5.1 mmol/L (3.5-5.1); Sodium 138 mmol/L (136-145)
[2023-12-05] MEDS ORDERED: Ondansetron PF 4 MG/2 ML Vial ONE (07:58)
[2023-12-05] MEDS ORDERED: Dexamethasone 20 MG/5 ML VIAL ONE (07:58)
[2023-12-05] MEDS ORDERED: Phenylephrine 10 MG/ML VIAL ONE (08:01)
[2023-12-05] MEDS ORDERED: fentaNYL 50 mcg/mL 1 mL Vial ONE (09:54)
[2023-12-05] MEDS ORDERED: Ondansetron PF 4 MG/2 ML Vial IVP PRN (10:02)
[2023-12-05] MEDS ORDERED: hydrALAZINE 20 MG/ML VIAL SLOW IVP PRN (10:02)
[2023-12-05] MEDS ORDERED: Phenylephrine 40 MG in Sodium Chloride 0.9% 250 ML 250 ML IVPB PRN (10:02)
[2023-12-05] MEDS ORDERED: Nitroglycerin 50 MG/250 ML BOT 250 ML IVPB PRN (10:02)
[2023-12-05] MEDS ORDERED: Non-Formulary Item 1 EACH (Brimonidine Tartrate [Brimonidine Tartrate 0.15% Ophth Soln] 1 R EYE SCH (10:02)
[2023-12-05] MEDS ORDERED: Ipratropium/Albuterol 3 ML NEB NEB PRN (10:02)
[2023-12-05] MEDS: Sodium Chloride 0.9% 1,000 ML IV SCH (10:50)
[2023-12-05] MEDS: traMADol HCl 50 MG TAB PO PRN ×2 (11:00→16:25)
[2023-12-05] MEDS: Dorzolamide HCl 2% Ophth (10 mL) Bottle R EYE SCH ×2 (11:45→20:22)
[2023-12-05] MEDS: CEFAZOLIN 2 GM in Sodium Chloride 0.9% 100 ML IVPB SCH (13:25)
[2023-12-05] MEDS: Ipratropium/Albuterol 3 ML NEB NEB SCH (13:47)
[2023-12-05] MEDS: FLU VACC QS2023(65UP)/MF59C/PF 60 MCG/0.5 ML SYRINGE IM ONE (14:18)
[2023-12-05] MEDS: fentaNYL 50 mcg/mL 1 mL Vial SLOW IVP PRN (14:25)
[2023-12-05 15:05] VITALS: BMI 29.7
[2023-12-05] MEDS: Insulin Regular 300 UNITS/3 ML VIAL SC PRN (17:45)
[2023-12-05] MEDS: Carvedilol 6.25 MG TAB PO SCH (20:22)
[2023-12-05] MEDS: Brimonidine Tartrate 0.2% Ophth Soln 5 ml Bottle R EYE SCH (20:22)
[2023-12-05] MEDS: metFORMIN 500 MG TAB PO SCH (20:22)
[2023-12-05] MEDS: Atorvastatin Calcium 40 MG TAB PO SCH (20:23)
[2023-12-06] MEDS: Acetaminophen 325 MG TAB PO PRN (06:03)
[2023-12-06 07:30] VITALS: TEMP 97.5
[2023-12-06] MEDS: Levothyroxine Sodium 25 MCG TAB PO SCH (08:36)
[2023-12-06] MEDS: Aspirin 81 mg Enteric Coated Tablet PO SCH (08:36)
[2023-12-06 08:37] VITALS: BP 128/72
== END 2023-12-06 09:39 | disposition home or self-care (01) | DRG 38 ==
LOC: SURG A 05:59 → CCU 10:13
PROVIDERS: ADMIT Thoracic Surgery (Cardiothoracic Vascular Surgery); ATTEND Thoracic Surgery (Cardiothoracic Vascular Surgery)
PROC: 03CM0ZZ Extirpation of Matter from Right External Carotid Artery, Open Approach (ICD-10-PCS; principal; 2023-12-05)
PROC: 03UM0KZ Supplement Right External Carotid Artery with Nonautologous Tissue Substitute, Open Approach (ICD-10-PCS; 2023-12-05)
DX: I65.21 Occlusion and stenosis of right carotid artery (principal); I42.9 Cardiomyopathy, unspecified; E78.5 Hyperlipidemia, unspecified; I25.10 Atherosclerotic heart disease of native coronary artery without angina pectoris; I48.91 Unspecified atrial fibrillation; I11.0 Hypertensive heart disease with heart failure; I50.9 Heart failure, unspecified; G47.33 Obstructive sleep apnea (adult) (pediatric); E11.9 Type 2 diabetes mellitus without complications; F41.9 Anxiety disorder, unspecified; F32.A Depression, unspecified; Z95.1 Presence of aortocoronary bypass graft; Z98.42 Cataract extraction status, left eye; Z98.41 Cataract extraction status, right eye; Z95.0 Presence of cardiac pacemaker; Z99.81 Dependence on supplemental oxygen; Z86.73 Personal history of transient ischemic attack (TIA), and cerebral infarction without residual deficits; Z79.82 Long term (current) use of aspirin
CPT/HCPCS: 36416; 80048; 85025; 94640; C1768; J0171; J0665; J1100; J1642; J1644; J1815; J2001; J2250; J2371; J2405; J2704; J2720; J3010; J3490; J7620

== ENCOUNTER 2024-02-20 06:57 | Outpatient (CLI) | payer MEDICARE | END 2024-02-20 06:58 | disposition home or self-care (01) | LOC: CT 06:57 | PROVIDERS: ATTEND Family Medicine | DX: N28.1 Cyst of kidney, acquired (principal); N40.0 Benign prostatic hyperplasia without lower urinary tract symptoms | CPT/HCPCS: 74178 ==

== ENCOUNTER 2024-02-29 10:13 | Observation (INO) | payer MEDICARE ==
[2024-02-29] MEDS ORDERED: Iopamidol 370 76% 100 ML VIAL ONE (10:52)
[2024-02-29 11:32] LABS: #Basophils 0.06 10x3/uL (0.0-0.2); %Basophils 0.8 % (0.0-1.0); %Eosinophils 3.7 % (0.0-10.0); %Lymphocytes 20.6 % (21.0-51.0); %Monocytes 10.2 % (0.0-10.0); %Neutrophils 64.3 % (42.0-75.0); Hematocrit 34.9 % (42.0-52.0); Mean Corpuscular HGB CONC 31.5 g/dL (32.0-36.0); Mean Corpuscular Hemoglobin 27.2 pg (27.0-31.0); Mean Corpuscular Volume 86.2 fL (78.0-98.0); Mean Platelet Volume 9.6 fL (7.4-10.4); Platelet Count 218 10x3/uL (130-400); RBC Distribution Width 16.9 % (11.5-14.5); Red Blood Cell (RBC) Count 4.05 mill/uL (4.70-6.10)
[2024-02-29] MEDS ORDERED: CEFAZOLIN 2 GM VIAL ONE (11:39)
[2024-02-29] MEDS ORDERED: Heparin 10,000 UNITS/ 10 ML VIAL ONE (11:39)
[2024-02-29] MEDS ORDERED: Protamine Sulfate 50 MG/5 ML VIAL ONE (11:39)
[2024-02-29 11:46] LABS: INR-International Normal Ratio 1.2; Prothrombin Time 14.8 sec (12.0-14.7)
[2024-02-29 11:47] LABS: PTT 33.9 sec (22.9-36.1)
[2024-02-29 12:01] LABS: ALT (SGPT) 9 U/L (8-55); AST (SGOT) 13 U/L (5-34); Albumin 3.5 g/dL (3.4-4.8); Alkaline Phosphatase 115 U/L (40-110); Anion Gap 13 mmol/L (10-20); BUN (Urea Nitrogen) 19 mg/dL (8.4-25.7); Bilirubin, Total 0.5 mg/dL (0.2-1.2); Calc. Creatinine Clearance 83 mL/min (70-130); Calcium 9.4 mg/dL (7.8-10.44); Carbon Dioxide 24 mmol/L (23-31); Chloride 109 mmol/L (98-107); Estimated GFR 77; Globulin 3.5 g/dL (2.4-3.5); Glucose 114 mg/dL (83-110); Potassium 4.3 mmol/L (3.5-5.1); Sodium 142 mmol/L (136-145)
[2024-02-29] MEDS ORDERED: fentaNYL 50 mcg/mL 1 mL Vial ONE ×2 (13:08→15:09)
[2024-02-29] MEDS ORDERED: Glycopyrrolate 0.2 MG/ML 5 ML SYRINGE ONE (13:19)
[2024-02-29] MEDS ORDERED: Ondansetron PF 4 MG/2 ML Vial ONE (13:19)
[2024-02-29] MEDS ORDERED: NEOSTIGMINE 3 MG/3 ML SYR 3 MG/3 ML SYRINGE ONE (13:19)
[2024-02-29] MEDS ORDERED: Rocuronium Bromide 10 MG/ML (10ML VIAL) ONE (13:19)
[2024-02-29] MEDS ORDERED: PROPOFOL 200 MG/20 ML VIAL ONE (13:19)
[2024-02-29] MEDS ORDERED: HYDROcodone/Acetaminophen 5/325 mg Tablet ONE (15:31)
[2024-02-29] MEDS ORDERED: Dextrose 50% Abboject 50 ML SYRINGE SLOW IVP PRN (16:32)
[2024-02-29] MEDS ORDERED: HumaLOG 300 UNITS/3 ML VIAL SC PRN (16:32)
[2024-02-29] MEDS ORDERED: Glucagon 1 MG/ML KIT IM PRN (16:32)
[2024-02-29] MEDS ORDERED: Dextrose 5% in Water 1,000 ML IV PRN (16:32)
[2024-02-29] MEDS ORDERED: Acetaminophen 325 MG TAB ONE (17:42)
[2024-02-29 18:43] VITALS: BMI 29.9
[2024-02-29] MEDS: Atorvastatin Calcium 40 MG TAB PO SCH (20:30)
[2024-02-29] MEDS: Midodrine HCl 5 MG TAB PO SCH (20:30)
[2024-02-29] MEDS: Brimonidine Tartrate 0.2% Ophth Soln 5 ml Bottle R EYE SCH (20:31)
[2024-02-29] MEDS: Dorzolamide HCl 2% Ophth (10 mL) Bottle R EYE SCH (20:31)
[2024-02-29] MEDS: Insulin Glargine 30 UNITS/0.3 ML VIAL SC SCH (20:50)
[2024-02-29 22:37] LABS: Bacteria/HPF None Seen HPF (None Seen); RBC/HPF 0-3 HPF (0-3); Squamous Epithelial 0-3 HPF (0-3); WBC/HPF 0-3 HPF (0-3)
[2024-03-01] MEDS: Levothyroxine Sodium 25 MCG TAB PO SCH (06:27)
[2024-03-01] MEDS ORDERED: Benzocaine/Menthol 1 LOZ LOZ PO PRN (07:48)
[2024-03-01] MEDS: Aspirin 81 mg Enteric Coated Tablet PO SCH (09:03)
[2024-03-01] MEDS: Silodosin 4 MG CAP PO SCH (09:03)
[2024-03-01] MEDS: metFORMIN 500 MG TAB PO SCH (09:03)
[2024-03-01] MEDS: Pantoprazole DR 40 MG TAB PO SCH (09:04)
[2024-03-01] MEDS: Dutasteride 0.5 MG CAP PO SCH (09:04)
[2024-03-01] MEDS: Clopidogrel Bisulfate 75 MG TAB PO SCH (09:04)
[2024-03-01 11:30] VITALS: BP 124/59; TEMP 98.1
[2024-03-01] MEDS: HumaLOG 300 UNITS/3 ML VIAL SC PRN (12:48)
== END 2024-03-01 16:50 | disposition home or self-care (01) ==
LOC: INTOOBSV 10:13 → SURG A 10:13 → 2SW 18:29
PROVIDERS: ADMIT Internal Medicine Cardiovascular Disease; ATTEND Internal Medicine Cardiovascular Disease
PROC: 02L73DK Occlusion of Left Atrial Appendage with Intraluminal Device, Percutaneous Approach (ICD-10-PCS; principal; 2024-02-29)
PROC: B246ZZ4 Ultrasonography of Right and Left Heart, Transesophageal (ICD-10-PCS; 2024-02-29)
PROC: B246YZZ Ultrasonography of Right and Left Heart using Other Contrast (ICD-10-PCS; 2024-02-29)
DX: I48.19 Other persistent atrial fibrillation (principal); I48.0 Paroxysmal atrial fibrillation; Z00.6 Encounter for examination for normal comparison and control in clinical research program; R55 Syncope and collapse; I95.9 Hypotension, unspecified; I10 Essential (primary) hypertension; N40.1 Benign prostatic hyperplasia with lower urinary tract symptoms; R33.9 Retention of urine, unspecified; I25.10 Atherosclerotic heart disease of native coronary artery without angina pectoris; E11.9 Type 2 diabetes mellitus without complications; E78.5 Hyperlipidemia, unspecified; E03.9 Hypothyroidism, unspecified; F32.9 Major depressive disorder, single episode, unspecified; I25.5 Ischemic cardiomyopathy; E78.00 Pure hypercholesterolemia, unspecified; E66.3 Overweight; I11.0 Hypertensive heart disease with heart failure; I50.22 Chronic systolic (congestive) heart failure; H40.9 Unspecified glaucoma; Z79.4 Long term (current) use of insulin; Z95.5 Presence of coronary angioplasty implant and graft; Z95.0 Presence of cardiac pacemaker; Z79.84 Long term (current) use of oral hypoglycemic drugs; Z95.818 Presence of other cardiac implants and grafts; Z79.890 Hormone replacement therapy; Z79.899 Other long term (current) drug therapy; Z68.29 Body mass index [BMI] 29.0-29.9, adult; Z79.82 Long term (current) use of aspirin; Z98.890 Other specified postprocedural states; I95.1 Orthostatic hypotension; Z88.5 Allergy status to narcotic agent
CPT/HCPCS: 33340; 80053; 81015; 82962 ×2; 85025; 85347; 85610; 85730; 86850; 86900; 86901; 86920; 93005; 93306 ×2; 93312; C1759; C1760 ×2; C1817; C1894 ×2; J3010; 36416; 93010; J1644; J1815; J2405; J2704; J2720; J3490; Q9967

== ENCOUNTER 2024-04-25 05:52 | Day surgery (SDC) | payer MEDICARE ==
[2024-04-11 10:10] LABS: Hematocrit 35.6 % (38.8-50.0); Hemoglobin 11.5 g/dL (13.5-17.5); Mean Corpuscular HGB CONC 32.3 g/dL (32.0-36.0); Mean Corpuscular Volume 86.8 fL (81.2-95.1); Mean Platelet Volume 9.6 fL (7.4-10.4); Platelet Count 229 10x3/uL (150-450); White Blood Cell (WBC) Count 7.8 10x3/uL (3.5-10.5)
[2024-04-11 10:16] LABS: INR-International Normal Ratio 1.1; PTT 28.8 sec (22.0-33.0); Prothrombin Time 11.6 sec (9.5-12.1)
[2024-04-24 10:01] VITALS: BMI 28.7
[2024-04-25 07:25] LABS: Anion Gap 12 mmol/L (10-20); BUN (Urea Nitrogen) 16 mg/dL (8.4-25.7); Calc. Creatinine Clearance 84 mL/min (70-130); Carbon Dioxide 24 mmol/L (23-31); Chloride 110 mmol/L (98-107); Estimated GFR 81; Glucose 112 mg/dL (83-110); Potassium 4.1 mmol/L (3.5-5.1); Sodium 142 mmol/L (136-145)
[2024-04-25] MEDS ORDERED: PROPOFOL 200 MG/20 ML VIAL ONE (07:50)
[2024-04-25] MEDS ORDERED: Lidocaine 1% PF 5 ML VIAL ONE (07:50)
[2024-04-25] MEDS ORDERED: PHENYLEPHRINE-NS 100 MCG/ML 10 ML SYRINGE ONE (07:50)
== END 2024-04-25 09:15 | disposition home or self-care (01) ==
LOC: SDC 05:52
PROVIDERS: ATTEND Internal Medicine Cardiovascular Disease
PROC: B246ZZ4 Ultrasonography of Right and Left Heart, Transesophageal (ICD-10-PCS; principal; 2024-04-25)
DX: I48.11 Longstanding persistent atrial fibrillation (principal); I95.1 Orthostatic hypotension; I50.22 Chronic systolic (congestive) heart failure; E11.9 Type 2 diabetes mellitus without complications; E78.00 Pure hypercholesterolemia, unspecified; I25.10 Atherosclerotic heart disease of native coronary artery without angina pectoris; G47.30 Sleep apnea, unspecified; Z95.0 Presence of cardiac pacemaker; E66.3 Overweight; Z68.29 Body mass index [BMI] 29.0-29.9, adult; Z88.5 Allergy status to narcotic agent; Z79.84 Long term (current) use of oral hypoglycemic drugs; Z79.899 Other long term (current) drug therapy; Z79.01 Long term (current) use of anticoagulants
CPT/HCPCS: 36416; 80048; 85027; 85610; 85730; 93312; J2704